=== PATIENT | male | born 1995 | race Caucasian/White ===

== ENCOUNTER 2018-10-15 07:52 | Outpatient (CLI) | payer SELFPAY | END 2018-10-15 07:53 | disposition EMS.NT | LOC: EMS 07:52 | PROVIDERS: ATTEND Surgery | DX: R56.9 Unspecified convulsions (principal) ==

== ENCOUNTER 2018-10-15 12:25 | Outpatient (CLI) | payer OTHER | END 2018-10-15 12:26 | disposition critical access hospital (66) | LOC: EMS 12:25 | PROVIDERS: ATTEND Surgery | DX: R56.9 Unspecified convulsions (principal) | CPT/HCPCS: A0425; A0429 ==

== ENCOUNTER 2018-10-15 12:45 | Emergency (ER) | payer OTHER ==
[2018-10-15] MEDS ORDERED: LORazepam 2 MG/ML VIAL IVP STA (12:54)
[2018-10-15] MEDS ORDERED: SODIUM CHLORIDE 0.9% 1,000 ML IV ONE (12:54)
[2018-10-15] MEDS ORDERED: ONDANSETRON 4 MG/2 ML VIAL IVP STA (13:13)
[2018-10-15] MEDS ORDERED: ACETAMINOPHEN 1,000 MG/100 ML 100 ML IV STA (13:13)
[2018-10-15 13:31] LABS: BASOPHILS # (AUTO) 0.1 10^3/uL (0.0-0.1); BASOPHILS % (AUTO) 0.5 %; EOSINOPHILS % (AUTO) 0.1 %; LYMPHOCYTES # (AUTO) 0.8 10^3/uL (1.5-3.5); LYMPHOCYTES % (AUTO) 7.1 %; MEAN CORPUSCULAR HEMOGLOBIN 31.5 pg (27.0-31.0); MEAN CORPUSCULAR HGB CONC 34.3 g/dL (32.0-36.0); MEAN CORPUSCULAR VOLUME 91.8 fL (80.0-94.0); MEAN PLATELET VOLUME 7.3 fL (7.4-11.4); MONOCYTES # (AUTO) 0.4 10^3/uL (0.0-1.0); MONOCYTES % (AUTO) 3.9 %; NEUTROPHILS # (AUTO) 9.5 10^3/uL (1.5-6.6); NEUTROPHILS % (AUTO) 88.4 %; PLT - PLATELET COUNT 227 10^3/uL (130-450); RED BLOOD COUNT 4.13 10^6/uL (4.70-6.10); RED CELL DISTRIBUTION WIDTH 12.4 % (12.0-15.0); WHITE BLOOD COUNT 10.7 x10^3/uL (4.8-10.8)
--- NOTE | 2018-10-15 13:31 | ED Physician Documentation ---
History of Present Illness - Stated complaint Stated Complaint: Seizures - Chief complaint Chief Complaint: Neuro - Additonal information Additional information: hx from pt 23 y/o male hx epilepsy followed by Dr Stanford at [place] has had an extensive wup due to inc seizures had keppra inc from 3 pills per day to 4 pill per day at [facility] for holidays worked out for three hr yesterday, sat in sauna, took an energy work out suppl ement got dehydrated today had two seziures, grand mal, no injury compliant with meds, otherwise well recently Review of Systems Constitutional: denies: Fever, Chills Throat: denies: Sore throat Cardiac: denies: Chest pain / pressure, Palpitations Respiratory: denies: Dyspnea GI: denies: Nausea, Vomiting Musculoskeletal: denies: Neck pain, Back pain Neurologic: reports: Seizure. denies: Headache, Head injury Endocrine: denies: Easy bruising / bleeding Immunocompromised: denies: Immunocompromised PD PAST MEDICAL HISTORY - Past Medical History Past Medical History: Yes Neuro: Seizure disorder - Past Surgical History Past Surgical History: No - Allergies Allergies/Adverse Reactions: Allergies Allergy/AdvReac Type Severity Reaction Status Date / Time No Known Drug Allergies Allergy Verified 10/15/18 12:47 - Social History Does the pt smoke?: No Smoking Status: Never smoker Does the pt drink ETOH?: No Does the pt have substance abuse?: No - Immunizations Immunizations are current?: Yes PD ED PE NORMAL - Vitals Vital signs reviewed: Yes - General General: No: Alert and oriented X 3 (confused and post ictal) - HEENT HEENT: Atraumatic, PERRL - Neck Neck: Supple, no meningeal sign - Cardiac Cardiac: RRR - Respiratory Respiratory: No respiratory distress - Abdomen Abdomen: Soft, Non tender - Derm Derm: Normal color - Extremities Extremities: No tenderness to palpate, No edema, No calf tenderness / cord - Neuro Neuro: No motor deficit. No: Alert and oriented X 3 (post ictal) Eye Opening: To Voice Motor: Obeys Commands Verbal: Oriented GCS Score: 14 Results - Vitals Vitals: Vital Signs - 24 hr 10/15/18 10/15/18 12:47 16:15 Temperature 36.5 C 37.2 C Heart Rate 77 64 Respiratory 16 15 Rate Blood Pressure 145/59 H 126/51 L O2 Saturation 97 95 Oxygen O2 Source Room air - Labs Labs: Laboratory Tests 10/15/18 10/15/18 13:20 13:20 WBC 10.7 RBC 4.13 L Hgb 13.0 L Hct 37.9 L MCV 91.8 MCH 31.5 H MCHC 34.3 RDW 12.4 Plt Count 227 MPV 7.3 L Neut # (Auto) 9.5 H Lymph # (Auto) 0.8 L Emmons # (Auto) 0.4 Eos # (Auto) 0.0 Baso # (Auto) 0.1 Absolute Nucleated RBC 0.01 Nucleated RBC % 0.1 Sodium 136 Potassium 4.0 Chloride 103 Carbon Dioxide 21 Anion Gap 12.0 BUN 16 Creatinine 0.9 Estimated GFR (MDRD) 103 Glucose 108 H Calcium 9.0 PD MEDICAL DECISION MAKING - ED course ED course: pt gradually recovered from his postictal state awake and alert had a MILLIGAN and nausea common for him after seizures (had no injury, was in bed then on couch) tried and unable to contact pts neurologist to discuss med adjustments observed several hr in ED and no further seizures after ativan will dc Departure - Departure Disposition: 01 Home, Self Care Clinical Impression: Seizure Condition: Good Instructions: ED Seizure Recurrent Comments: Please continue your medications as before until you are able to contact your neurologist to discuss further medication management Discharge Date/Time: 10/15/18 16:24
[2018-10-15 13:46] LABS: CREATININE 0.9 mg/dL (0.6-1.2)
[2018-10-15] MEDS ORDERED: KETOROLAC 30 MG/ML VIAL IVP STA (14:50)
[2018-10-15 16:15] VITALS: BP 126/51
== END 2018-10-15 16:24 | disposition home or self-care (01) ==
LOC: EDUNIT# → ED 12:45
DX: G40.909 Epilepsy, unspecified, not intractable, without status epilepticus (principal)
CPT/HCPCS: 36415; 80048; 85025; 96361; 96365; 96375; 99283; 99284; J0131; J2060

== ENCOUNTER 2018-10-16 11:21 | Outpatient (CLI) | payer OTHER | END 2018-10-16 11:22 | disposition short-term general hospital (02) | LOC: EMS 11:21 | PROVIDERS: ATTEND Surgery | DX: R56.9 Unspecified convulsions (principal) | CPT/HCPCS: A0425; A0427 ==